=== PATIENT | female | born 1995 | race Two or more races ===

== ENCOUNTER 2016-10-25 10:58 | Emergency (ER) | payer OTHER ==
--- NOTE | 2016-10-25 13:47 | EDDOCDS ---
Nurse's Notes [facility] Name: Elaine Bowie Age: 21 yrs Sex: Female : 1995 Arrival Date: 10/25/2016 Time: 10:58 Bed TR7 Private MD: Other - Complete Info On Cds; KYLEE Newman Diagnosis: Acute tonsillitis-exudative Presentation: 10/25 11:04 Presenting complaint: Patient states: sore throat for 2 days. Patient reports did not hs1 go to sick call this morning. Risk factors: Stridor is not present. Drooling is not present. Shortness of breath is not present. Cellulitis is not present. Adult Sepsis Screening: The patient does not have new or worsening altered mentation. Patient's respiratory rate is less than 22. Systolic blood pressure is greater than 100. Patient has a qSOFA score of 0- Negative Sepsis Screen. Suicide/Homicide risk assessment- the patient denies having any suicidal and/or homicidal ideations and does not present with any other emotional, behavioral or mental health complaints. 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 Transition of care: patient was not received from another setting of care. 11:04 Acuity: HERMELINDA Level 4 hs1 11:04 Method Of Arrival: Walkin/Carried/Asstd hs1 Triage Assessment: 11:05 General: Appears in no apparent distress, Behavior is cooperative. Pain: Pain currently hs1 is 10 out of 10 on a pain scale. Pt Declines HIV testing. EENT: Reports sore throat. 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 none - PMHx: none; - PSHx: none; - Social history: Smoking status: Patient uses tobacco products, light tobacco smoker. No barriers to communication noted, The patient speaks fluent [place], Speaks appropriately for age. - Family history: Not pertinent. - : The pt / caregiver states he / she is not on anticoagulants. Home medication list is obtained from the patient. - Exposure Risk Screening:: None identified. Screenin:30 Screening information is obtained from the patient. Fall risk: No risks identified. ttb Assistance ADL's: requires no assistance with activities of daily living. Abuse/DV Screen: The patient / caregiver reports he/she is: not in a situation that causes fear, pain or injury. Nutritional screening: No deficits noted. Advance Directives: Currently, there is no health care proxy. home support is adequate. Assessment: 13:30 General: Appears in no apparent distress, well nourished, well groomed. Pain: Location: ttb throat. Neurological: Level of Consciousness is awake, alert. EENT: Throat has enlarged tonsils. Respiratory: Airway is patent Respiratory effort is even, unlabored, Respiratory pattern is regular, symmetrical, Denies shortness of breath. Derm: Skin is normal. 13:32 General: pt requests suspension for ibuprofen...PA aware.. ttb Vital Signs: 11:00 BP 111 / 75; Pulse 68; Resp 18; Temp 98.6; Pulse Ox 100% on R/A; Weight 54.43 kg (R); jrd Height 5 ft. 1 in. (154.94 cm); Pain 10/10; 13:30 BP 124 / 75; Pulse 85; Resp 18; Temp 98.3; Pulse Ox 98% on R/A; Pain 5/10; ttb 11:00 Body Mass Index 22.67 (54.43 kg, 154.94 cm) jrd Vitals: 11:00 Log In Time: October 25, 2016 at 10:45. jrd 12:43 Strep Screen is obtained and tested: Negative, a GATSNEG culture is ordered in [facility] mlb1 and sent. ED Course: 11:00 Patient visited by Jordan Palomares PCA. jrd 11:00 Other - Complete Info On Cds is Private Physician. jrd 11:00 KYLEE Newman is Private Physician. jrd 11:00 Patient moved to Waiting jrd 11:01 Patient visited by Jordan Palomares PCA. jrd 11:02 Patient moved to Pre RCE jrd 11:04 Triage Initiated hs1 12:33 Patient moved to Triage 1 mlb1 12:49 GATS (NEGATIVE STREP SCREEN) Sent. mlb1 12:53 Ulysses Sheriff PA-C is PHCP. ar2 12:53 Edward Elena MD is Attending Physician. ar2 12:53 Patient visited by Ulysses Sheriff PA-C. ar2 13:15 KYLEE Newman is Referral Physician. ar2 13:30 The patient / caregiver is instructed regarding the plan of care and ED course. Patient ttb has correct armband on for positive identification. 13:30 No IV's were initiated during this patient's visit. No procedures done that require ttb assistance. Strep culture sent to lab. 13:34 Patient moved to TR7 ttb Order Results: There are currently no results for this order. Outcome: 13:15 Discharge ordered by Provider. ar2 13:30 Discharge Assessment: Patient awake, alert and oriented x 3. No cognitive and/or ttb functional deficits noted. Patient verbalized understanding of disposition instructions. Patient awake and alert. patient administered narcotics - no. The following High Risk Discharge criteria are identified: None. Discharged to home ambulatory. Condition: good Condition: stable Condition: improved. Discharge instructions given to patient, Instructed on discharge instructions, follow up and referral plans. medication usage. No special radiology studies were completed. Property :Personal belongings accompany Pt. 13:45 Patient left the ED. ttb Signatures: Uday Olson RN RN mlb1 Ulysses Sheriff PA-C PATarik ar2 Shira Clifford, RN RN hs1 Ashlee Luke, BILL RN ttb Jordan Palomares, DEMOLITION HAMMER OPERATOR DEMOLITION HAMMER OPERATOR jrd MTDD
--- NOTE | 2016-10-25 13:47 | EDDOCDS ---
Physician Documentation [facility] Name: Elaine Bowie Age: 21 yrs Sex: Female : 1995 Arrival Date: 10/25/2016 Time: 10:58 Bed TR7 Private MD: Other - Complete Info On Cds; [facility] [place] Disposition: 10/25/16 13:15 Discharged to Home/Self Care. Impression: Acute tonsillitis - exudative. - Condition is Stable. - Discharge Instructions: Clear Liquid Diet, Tonsillitis, [id number]. - Prescriptions for Keflex 500 mg Oral Capsule - take 2 capsule by ORAL route every 12 hours for 10 days; 40 capsule. Ibuprofen 100 mg/5 mL Oral Suspension - take 30 milliliter by ORAL route every 6 hours As needed Take with food; Max = 40mg/kg/day.; 2 bottle. - Medication Reconciliation, Local Pharmacy Hours form. - Follow up: KAMI Newman; When: 2 - 3 days; Reason: Recheck today's complaints. Follow up: Emergency Department; When: As needed; Reason: Fever > 102F, Trouble breathing, Worsening of conditions. - Problem is new. - Symptoms are unchanged. - Notes: recommend rest at home for next 2-3 days. liquid diet for next 24 hrs, advance as tolerated. may use cepachol lozenges for additional pain relief Historical: - Allergies: no known allergies; - Home Meds: 1. none - PMHx: none; - PSHx: none; - Social history: Smoking status: Patient uses tobacco products, light tobacco smoker. No barriers to communication noted, The patient speaks fluent Martiniquais, Speaks appropriately for age. - Family history: Not pertinent. - : The pt / caregiver states he / she is not on anticoagulants. Home medication list is obtained from the patient. - Exposure Risk Screening:: None identified. 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 1 in. (154.94 cm); Pain 10/10; 13:30 BP 124 / 75; Pulse 85; Resp 18; Temp 98.3; Pulse Ox 98% on R/A; Pain 5/10; ttb 11:00 Body Mass Index 22.67 (54.43 kg, 154.94 cm) jrd MDM: 11:03 Strep Screen, Nursing ordered. dt4 12:44 GATS (NEGATIVE STREP SCREEN) Ordered. EDMS Signatures: Dispatcher [employer] EDMS Ulysses Sheriff PA-C PA-C ar2 Shira Clifford RN RN hs1 Ashlee Luke RN RN ttb Bridget Bailey PA-C PA-C dt4 MTDD
--- NOTE | 2016-10-27 14:46 | EDDOCDS ---
Physician Documentation [facility] Name: Elaine Bowie Age: 21 yrs Sex: Female : 1995 Arrival Date: 10/25/2016 Time: 10:58 Bed TR7 Private MD: Other - Complete Info On Cds; [place] [facility] [place] Disposition: 10/25/16 13:15 Discharged to Home/Self Care. Impression: Acute tonsillitis - exudative. - Condition is Stable. - Discharge Instructions: Clear Liquid Diet, Tonsillitis, [id number]. - Prescriptions for Keflex 500 mg Oral Capsule - take 2 capsule by ORAL route every 12 hours for 10 days; 40 capsule. Ibuprofen 100 mg/5 mL Oral Suspension - take 30 milliliter by ORAL route every 6 hours As needed Take with food; Max = 40mg/kg/day.; 2 bottle. - Medication Reconciliation, Local Pharmacy Hours form. - Follow up: KAMI Newman; When: 2 - 3 days; Reason: Recheck today's complaints. Follow up: Emergency Department; When: As needed; Reason: Fever > 102F, Trouble breathing, Worsening of conditions. - Problem is new. - Symptoms are unchanged. - Notes: recommend rest at home for next 2-3 days. liquid diet for next 24 hrs, advance as tolerated. may use cepachol lozenges for additional pain relief Historical: - Allergies: no known allergies; - Home Meds: 1. none - PMHx: none; - PSHx: none; - Social history: Smoking status: Patient uses tobacco products, light tobacco smoker. No barriers to communication noted, The patient speaks fluent [place] Citizen, Speaks appropriately for age. - Family history: Not pertinent. - : The pt / caregiver states he / she is not on anticoagulants. Home medication list is obtained from the patient. - Exposure Risk Screening:: None identified. 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 1 in. (154.94 cm); Pain 10/10; 13:30 BP 124 / 75; Pulse 85; Resp 18; Temp 98.3; Pulse Ox 98% on R/A; Pain 5/10; ttb 11:00 Body Mass Index 22.67 (54.43 kg, 154.94 cm) jrd MDM: 11:03 Strep Screen, Nursing ordered. dt4 12:44 GATS (NEGATIVE STREP SCREEN) Ordered. EDMS 14:47 [facility] Payment Agreement was scanned into [employer] and attached to record. lg 10/26 11:51 T-Sheet-- Draft Copy was scanned into [employer] and attached to record. gb Signatures: Dispatcher [employer] EDMS Norah Samuels, Reg Reg gb Negar Rojas, Reg Reg lg Ulysses Sheriff PA-C PA-C ar2 Shira Clifford RN RN hs1 Ashlee Luke RN RN ttb Bridget Bailey PA-C PA-C dt4 The chart was reviewed and I authenticate all verbal orders and agree with the evaluation and treatment provided.Attachments: 10/25 14:47 [facility] Payment Agreement 10/26 11:51 T-Sheet-- Draft Copy gb Chart Complete MTDD
--- NOTE | 2016-10-27 14:46 | EDDOCDS ---
Physician Documentation [facility] Name: Elaine Bowie Age: 21 yrs Sex: Female : 1995 Arrival Date: 10/25/2016 Time: 10:58 Bed TR7 Private MD: Other - Complete Info On Cds; [facility] [place] Disposition: 10/25/16 13:15 Discharged to Home/Self Care. Impression: Acute tonsillitis - exudative. - Condition is Stable. - Discharge Instructions: Clear Liquid Diet, Tonsillitis, [id number]. - Prescriptions for Keflex 500 mg Oral Capsule - take 2 capsule by ORAL route every 12 hours for 10 days; 40 capsule. Ibuprofen 100 mg/5 mL Oral Suspension - take 30 milliliter by ORAL route every 6 hours As needed Take with food; Max = 40mg/kg/day.; 2 bottle. - Medication Reconciliation, Local Pharmacy Hours form. - Follow up: KAMI Newman; When: 2 - 3 days; Reason: Recheck today's complaints. Follow up: Emergency Department; When: As needed; Reason: Fever > 102F, Trouble breathing, Worsening of conditions. - Problem is new. - Symptoms are unchanged. - Notes: recommend rest at home for next 2-3 days. liquid diet for next 24 hrs, advance as tolerated. may use cepachol lozenges for additional pain relief Historical: - Allergies: no known allergies; - Home Meds: 1. none - PMHx: none; - PSHx: none; - Social history: Smoking status: Patient uses tobacco products, light tobacco smoker. No barriers to communication noted, The patient speaks fluent Thai, Speaks appropriately for age. - Family history: Not pertinent. - : The pt / caregiver states he / she is not on anticoagulants. Home medication list is obtained from the patient. - Exposure Risk Screening:: None identified. 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 1 in. (154.94 cm); Pain 10/10; 13:30 BP 124 / 75; Pulse 85; Resp 18; Temp 98.3; Pulse Ox 98% on R/A; Pain 5/10; ttb 11:00 Body Mass Index 22.67 (54.43 kg, 154.94 cm) jrd MDM: 11:03 Strep Screen, Nursing ordered. dt4 12:44 GATS (NEGATIVE STREP SCREEN) Ordered. EDMS 14:47 [facility] Payment Agreement was scanned into [employer] and attached to record. lg 10/26 11:51 T-Sheet-- Draft Copy was scanned into [employer] and attached to record. gb Signatures: Dispatcher [employer] EDMS Norah Samuels, Reg Reg gb Negar Rojas, Reg Reg lg Ulysses Sheriff PA-C PA-C ar2 Shira Clifford RN RN hs1 Ashlee Luke RN RN ttb Bridget Bailey PA-C PA-C dt4 The chart was reviewed and I authenticate all verbal orders and agree with the evaluation and treatment provided.Attachments: 10/25 14:47 [facility] Payment Agreement 10/26 11:51 T-Sheet-- Draft Copy gb Chart Complete MTDD
--- NOTE | 2016-10-27 14:46 | EDDOCDS ---
Nurse's Notes [facility] Name: Elaine Bowie Age: 21 yrs Sex: Female : 1995 Arrival Date: 10/25/2016 Time: 10:58 Bed TR7 Private MD: Other - Complete Info On Cds; KYLEE Newman Diagnosis: Acute tonsillitis-exudative Presentation: 10/25 11:04 Presenting complaint: Patient states: sore throat for 2 days. Patient reports did not hs1 go to sick call this morning. Risk factors: Stridor is not present. Drooling is not present. Shortness of breath is not present. Cellulitis is not present. Adult Sepsis Screening: The patient does not have new or worsening altered mentation. Patient's respiratory rate is less than 22. Systolic blood pressure is greater than 100. Patient has a qSOFA score of 0- Negative Sepsis Screen. Suicide/Homicide risk assessment- the patient denies having any suicidal and/or homicidal ideations and does not present with any other emotional, behavioral or mental health complaints. 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 Transition of care: patient was not received from another setting of care. 11:04 Acuity: HERMELINDA Level 4 hs1 11:04 Method Of Arrival: Walkin/Carried/Asstd hs1 Triage Assessment: 11:05 General: Appears in no apparent distress, Behavior is cooperative. Pain: Pain currently hs1 is 10 out of 10 on a pain scale. Pt Declines HIV testing. EENT: Reports sore throat. 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 none - PMHx: none; - PSHx: none; - Social history: Smoking status: Patient uses tobacco products, light tobacco smoker. No barriers to communication noted, The patient speaks fluent Wallisian, Speaks appropriately for age. - Family history: Not pertinent. - : The pt / caregiver states he / she is not on anticoagulants. Home medication list is obtained from the patient. - Exposure Risk Screening:: None identified. Screenin:30 Screening information is obtained from the patient. Fall risk: No risks identified. ttb Assistance ADL's: requires no assistance with activities of daily living. Abuse/DV Screen: The patient / caregiver reports he/she is: not in a situation that causes fear, pain or injury. Nutritional screening: No deficits noted. Advance Directives: Currently, there is no health care proxy. home support is adequate. Assessment: 13:30 General: Appears in no apparent distress, well nourished, well groomed. Pain: Location: ttb throat. Neurological: Level of Consciousness is awake, alert. EENT: Throat has enlarged tonsils. Respiratory: Airway is patent Respiratory effort is even, unlabored, Respiratory pattern is regular, symmetrical, Denies shortness of breath. Derm: Skin is normal. 13:32 General: pt requests suspension for ibuprofen...PA aware.. ttb Vital Signs: 11:00 BP 111 / 75; Pulse 68; Resp 18; Temp 98.6; Pulse Ox 100% on R/A; Weight 54.43 kg (R); jrd Height 5 ft. 1 in. (154.94 cm); Pain 10/10; 13:30 BP 124 / 75; Pulse 85; Resp 18; Temp 98.3; Pulse Ox 98% on R/A; Pain 5/10; ttb 11:00 Body Mass Index 22.67 (54.43 kg, 154.94 cm) jrd Vitals: 11:00 Log In Time: October 25, 2016 at 10:45. jrd 12:43 Strep Screen is obtained and tested: Negative, a GATSNEG culture is ordered in [facility] mlb1 and sent. ED Course: 11:00 Patient visited by Jordan Palomares PCA. jrd 11:00 Other - Complete Info On Cds is Private Physician. jrd 11:00 KYLEE Newman is Private Physician. jrd 11:00 Patient moved to Waiting jrd 11:01 Patient visited by Jordan Palomares PCA. jrd 11:02 Patient moved to Pre RCE jrd 11:04 Triage Initiated hs1 12:33 Patient moved to Triage 1 mlb1 12:49 GATS (NEGATIVE STREP SCREEN) Sent. mlb1 12:53 Ulysses Sheriff PA-C is PHCP. ar2 12:53 Edward Elena MD is Attending Physician. ar2 12:53 Patient visited by Ulysses Sheriff PA-C. ar2 13:15 KYLEE Newman is Referral Physician. ar2 13:30 The patient / caregiver is instructed regarding the plan of care and ED course. Patient ttb has correct armband on for positive identification. 13:30 No IV's were initiated during this patient's visit. No procedures done that require ttb assistance. Strep culture sent to lab. 13:34 Patient moved to TR7 ttb 14:45 Patient name changed from Elaine\S\\S\Clinton\S\ to Elaine\S\Suzy\S\Clinton. EDMS 14:47 [facility] [place] Payment Agreement was scanned into [employer] and attached to record. 02 11:51 T-Sheet-- Draft Copy was scanned into [employer] and attached to record. gb Order Results: Lab Order: GATS (NEGATIVE STREP SCREEN); SPEC'M 10/25/16 12:46 Test: GATS CULTURE (NEG STREP SCR); Value: GATS RESULT NEGATIVE FOR STREP PYOGENES (GROUP A); Status: F Test: GATS CULTURE (NEG STREP SCR); Value: <EXTERNAL COMMENT eCWMed> FULL REPORT IN LAB NOTES (eCW and Medent).; Status: F Outcome: 10/25 13:15 Discharge ordered by Provider. ar2 13:30 Discharge Assessment: Patient awake, alert and oriented x 3. No cognitive and/or ttb functional deficits noted. Patient verbalized understanding of disposition instructions. Patient awake and alert. patient administered narcotics - no. The following High Risk Discharge criteria are identified: None. Discharged to home ambulatory. Condition: good Condition: stable Condition: improved. Discharge instructions given to patient, Instructed on discharge instructions, follow up and referral plans. medication usage. No special radiology studies were completed. Property :Personal belongings accompany Pt. 13:45 Patient left the ED. ttb Signatures: Dispatcher [employer] EDRI Norah Samuels, Reg Reg gb Negar Rojas, Reg Reg lg Uday Olson RN RN mlb1 Ulysses Sheriff PA-C PA-C ar2 Shira Clifford, RN RN hs1 Ashlee Luke RN RN ttb Joradn Palomares, EMILIA EDGE BONDER jrd Chart Complete MTDD
== END 2016-10-25 13:45 | disposition home or self-care (01) ==
LOC: M ED 10:58
DX: J03.90 Acute tonsillitis, unspecified (principal); F17.210 Nicotine dependence, cigarettes, uncomplicated

== ENCOUNTER 2016-10-27 12:48 | Emergency (ER) | payer OTHER ==
[2016-10-27] MEDS ORDERED: LIDOCAINE 1% MDV 20ML VIAL As Ordered ONE (13:35)
[2016-10-27] MEDS ORDERED: cefTRIAXone SOD 1 GM VIAL (J0696) As Ordered ONE (13:36)
[2016-10-27] MEDS ORDERED: IBUPROFEN 600 MG TAB As Ordered ONE (14:50)
--- NOTE | 2016-10-27 15:05 | EDDOCDS ---
Physician Documentation [facility] Name: Elaine Bowie Age: 21 yrs Sex: Female : 1995 Arrival Date: 10/27/2016 Time: 12:48 Bed 13 Private MD: KYLEE Newman Disposition: 10/27/16 14:19 Discharged to Home/Self Care. Impression: Acute pharyngitis. - Condition is Stable. - Discharge Instructions: Pharyngitis, Salt Water Gargle. - Prescriptions for Ibuprofen 600 mg Oral Tablet - take 1 tablet by ORAL route every 6 hours As needed take with food; 30 tablet. - Medication Reconciliation, Local Pharmacy Hours form. - Follow up: KYLEE Newman; When: 2 - 3 days; Reason: Recheck today's complaints, Continuance of care. - Problem is an ongoing problem. - Symptoms are unchanged. Historical: - Allergies: no known allergies; - Home Meds: 1. Keflex 500 mg Oral cap 2 cap every 12 hours (Last dose: 10/27/2016) 2. ibuprofen 100 mg/5 mL Oral susp 30 mL (Last dose: 10/27/2016 05:00) - PMHx: none; - PSHx: none; - Social history: Smoking status: Patient uses tobacco products, light tobacco smoker. No barriers to communication noted, The patient speaks fluent Yakut. - Family history: Not pertinent. - : The pt / caregiver states he / she is not on anticoagulants. Home medication list is obtained from the patient. - Exposure Risk Screening:: None identified. 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 (154.94 cm); Pain 10/10; 14:59 BP 116 / 61; Pulse 88; Resp 16; Temp 100.7; Pulse Ox 96% ; Pain 10/10; cjh 12:59 Body Mass Index 22.67 (54.43 kg, 154.94 cm) mb9 MDM: 13:10 Strep Screen, Nursing ordered. lam 13:11 Financial registration complete. mm15 13:11 cefTRIAXone 1 grams IM once ordered. lam 13:11 [facility] Payment Agreement was scanned into [employer] and attached to record. mm15 13:49 GATS (NEGATIVE STREP SCREEN) Ordered. EDMS 14:49 Ibuprofen 600 mg PO once ordered. ke Administered Medications: 13:11 CANCELLED (Other Intervention Used): Penicillin VK 500 mg PO once ke 13:11 CANCELLED (Other Intervention Used): predniSONE 20 mg PO once; administer with food or ke milk 13:48 Drug: cefTRIAXone 1 grams Route: IM; Site: right gluteus; [facility] 15:04 Follow up: Response: No Adverse Reaction [facility] 14:52 Drug: Ibuprofen 600 mg [ibuprofen 600 mg tablet (1 tabs)] Route: PO; [facility] Signatures: Dispatcher [employer] EDMS Greyson Chatterjee FNP LOADING MACHINE TOOL SETTER Claudia YoRN RN [facility] Alan Minor mm15 Uday MarRN RN mb9 The chart was reviewed and I authenticate all verbal orders and agree with the evaluation and treatment provided.Corrections: (The following items were deleted from the chart) 13:11 13:10 Penicillin VK 500 mg PO once ordered. ke ke 13:11 13:10 predniSONE 20 mg PO once; administer with food or milk ordered. ke ke Attachments: 13:11 [facility] Payment Agreement mm15 MTDD
--- NOTE | 2016-10-27 15:05 | EDDOCDS ---
Nurse's Notes [facility] Name: Elaine Bowie Age: 21 yrs Sex: Female : 1995 Arrival Date: 10/27/2016 Time: 12:48 Bed 13 Private MD: Trent Eleanor Diagnosis: Acute pharyngitis Presentation: 10/27 12:55 Presenting complaint: Patient states: "I was here the other day for a sore throat and mb9 you guys gave me antibiotics. I went to the [facility] today because I had some black spots on my throat and it felt like my throat was closing.". Risk factors: Stridor is not present. Drooling is not present. Shortness of breath is not present. Cellulitis is present. The charge nurse has been notified. The patient has been moved to a treatment area. Adult Sepsis Screening: The patient does not have new or worsening altered mentation. Patient's respiratory rate is less than 22. Systolic blood pressure is greater than 100. Patient has a qSOFA score of 0- Negative Sepsis Screen. Suicide/Homicide risk assessment- the patient denies having any suicidal and/or homicidal ideations and does not present with any other emotional, behavioral or mental health complaints. 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 Transition of care: patient was received from a primary care office; [place]. Care prior to arrival: See EMS report. Medications administered prior to arrival: ems reports pt received 8 mg of dexamethasone IM at [facility] 12:55 Acuity: HERMELINDA Level 3 mb9 12:55 Method Of Arrival: Ambulance mb9 Triage Assessment: 13:04 General: Appears uncomfortable, Behavior is cooperative. Pain: Location: uvula, left mb9 aspect of posterior pharynx and right aspect of posterior pharynx Pain currently is 10 out of 10 on a pain scale. HIV screening NA for this visit Offered previously. The patient is triaged at the bedside. See Assessment in Nurses Notes section of ED record. EENT: Throat is reddened has enlarged tonsils on right on left. Respiratory: Airway is patent Respiratory effort is even, unlabored, Breath sounds are clear bilaterally. 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 Keflex 500 mg Oral cap 2 cap every 12 hours (Last dose: 10/27/2016) 2. ibuprofen 100 mg/5 mL Oral susp 30 mL (Last dose: 10/27/2016 05:00) - PMHx: none; - PSHx: none; - Social history: Smoking status: Patient uses tobacco products, light tobacco smoker. No barriers to communication noted, The patient speaks fluent Mongolian. - Family history: Not pertinent. - : The pt / caregiver states he / she is not on anticoagulants. Home medication list is obtained from the patient. - Exposure Risk Screening:: None identified. Screenin:59 Screening information is obtained from the patient. Fall risk: No risks identified. [facility] Assistance ADL's: requires no assistance with activities of daily living. Abuse/DV Screen: The patient / caregiver reports he/she is: not in a situation that causes fear, pain or injury. Nutritional screening: No deficits noted. Advance Directives: There is no active DNR order. home support is adequate. Assessment: 14:59 General: Appears in no apparent distress, comfortable, Behavior is appropriate for age, [facility] cooperative. Pain: Location: throat Pain currently is 10 out of 10 on a pain scale. Vital Signs: 12:59 BP 112 / 71; Pulse 97; Resp 17; Temp 99(TE); Pulse Ox 98% on R/A; Weight 54.43 kg; mb9 Height 61 in. (154.94 cm); Pain 10/10; 14:59 BP 116 / 61; Pulse 88; Resp 16; Temp 100.7; Pulse Ox 96% ; Pain 10/10; [facility] 12:59 Body Mass Index 22.67 (54.43 kg, 154.94 cm) 9 Vitals: 12:59 Log In Time N/A - ambulance arrival. mb9 ED Course: 12:49 Patient visited by Carmen Marquez, Therapist Physical. lbd 12:49 Trent [facility] is Private Physician. lbd 12:49 Patient moved to Waiting lbd 12:49 Patient moved to 13 lbd 12:59 Triage Initiated mb9 13:02 [facility] ke 13:02 Patient visited by Greyson Chatterjee FNP. ke 13:02 Patient visited by Greyson Chatterjee FNP. ke 13:11 [facility] Payment Agreement was scanned into [employer] and attached to record. mm15 13:31 Patient visited by Greyson Chatterjee FNP. ke 14:00 Patient visited by Greyson Chatterjee FNP. ke 14:19 Trent [facility] is Referral Physician. ke 14:59 The patient / caregiver is instructed regarding the plan of care and ED course. [facility] 14:59 No IV's were initiated during this patient's visit. No procedures done that require [facility] assistance. Administered Medications: 13:11 CANCELLED (Other Intervention Used): Penicillin VK 500 mg PO once ke 13:11 CANCELLED (Other Intervention Used): predniSONE 20 mg PO once; administer with food or ke milk 13:48 Drug: cefTRIAXone 1 grams Route: IM; Site: right gluteus; [facility] 15:04 Follow up: Response: No Adverse Reaction [facility] 14:52 Drug: Ibuprofen 600 mg [ibuprofen 600 mg tablet (1 tabs)] Route: PO; [facility] Order Results: There are currently no results for this order. Outcome: 14:19 Discharge ordered by Provider. ke 14:59 Discharge Assessment: Patient awake, alert and oriented x 3. No cognitive and/or [facility] functional deficits noted. Patient verbalized understanding of disposition instructions. patient administered narcotics - no. The following High Risk Discharge criteria are identified: None. Discharged to home ambulatory. Condition: good Condition: stable Condition: improved. Discharge instructions given to patient, Instructed on discharge instructions, follow up and referral plans. medication usage, Demonstrated understanding of instructions, medications, Pt was receptive of discharge instructions/ teaching. Prescriptions given X 1. No special radiology studies were completed. Property :Personal belongings accompany Pt. 15:05 Patient left the ED. [facility] Signatures: Carmen Marquez, Therapist Physical Unit lbd Greyson Chatterjee FNP FNP ke Hafner, JaneRN RN [facility] Alan Minor mm15 Uday Mar,RN RN mb9 Corrections: (The following items were deleted from the chart) 15:02 14:59 BP 166 / 61; Pulse 88bpm; Resp 16bpm; Pulse Ox 96%; Temp 100.7F; Pain 10/10; [facility] MTDD
--- NOTE | 2016-10-29 16:06 | EDDOCDS ---
Physician Documentation [facility] Name: Elaine Bowie Age: 21 yrs Sex: Female : 1995 Arrival Date: 10/27/2016 Time: 12:48 Bed 13 Private MD: KYLEE Newman Disposition: 10/27/16 14:19 Discharged to Home/Self Care. Impression: Acute pharyngitis. - Condition is Stable. - Discharge Instructions: Pharyngitis, Salt Water Gargle. - Prescriptions for Ibuprofen 600 mg Oral Tablet - take 1 tablet by ORAL route every 6 hours As needed take with food; 30 tablet. - Medication Reconciliation, Local Pharmacy Hours form. - Follow up: KYLEE Newman; When: 2 - 3 days; Reason: Recheck today's complaints, Continuance of care. - Problem is an ongoing problem. - Symptoms are unchanged. Historical: - Allergies: no known allergies; - Home Meds: 1. Keflex 500 mg Oral cap 2 cap every 12 hours (Last dose: 10/27/2016) 2. ibuprofen 100 mg/5 mL Oral susp 30 mL (Last dose: 10/27/2016 05:00) - PMHx: none; - PSHx: none; - Social history: Smoking status: Patient uses tobacco products, light tobacco smoker. No barriers to communication noted, The patient speaks fluent Kazakh. - Family history: Not pertinent. - : The pt / caregiver states he / she is not on anticoagulants. Home medication list is obtained from the patient. - Exposure Risk Screening:: None identified. PRESS SET UP: 10/27 12:59 LMP 10/02/2016 mb9 Vital Signs: 12:59 BP 112 / 71; Pulse 97; Resp 17; Temp 99(TE); Pulse Ox 98% on R/A; Weight 54.43 kg / 120 mb9 lbs; Height 61 in. (154.94 cm); Pain 10/10; 14:59 BP 116 / 61; Pulse 88; Resp 16; Temp 100.7; Pulse Ox 96% ; Pain 10/10; cjh 12:59 Body Mass Index 22.67 (54.43 kg, 154.94 cm) mb9 MDM: 13:10 Strep Screen, Nursing ordered. lam 13:11 Financial registration complete. mm15 13:11 cefTRIAXone 1 grams IM once ordered. lam 13:11 [facility] Payment Agreement was scanned into [employer] and attached to record. mm15 13:49 GATS (NEGATIVE STREP SCREEN) Ordered. EDMS 14:49 Ibuprofen 600 mg PO once ordered. ke 10/28 10:50 T-Sheet-- Draft Copy was scanned into [employer] and attached to record. gb 17:32 PCR was scanned into [employer] and attached to record. gb Administered Medications: 10/27 13:11 CANCELLED (Other Intervention Used): Penicillin VK 500 mg PO once ke 13:11 CANCELLED (Other Intervention Used): predniSONE 20 mg PO once; administer with food or ke milk 13:48 Drug: cefTRIAXone 1 grams Route: IM; Site: right gluteus; [facility] 15:04 Follow up: Response: No Adverse Reaction [facility] 14:52 Drug: Ibuprofen 600 mg [ibuprofen 600 mg tablet (1 tabs)] Route: PO; [facility] 15:11 Follow up: Response: Pt left department before re-evaluation is appropriate [facility] Signatures: Dispatcher [employer] EDMS Norah Samuels, Reg Reg Greyson Chatterjee, FOUNTAIN BRUSH ASSEMBLER FOUNTAIN BRUSH ASSEMBLER Claudia Moy RN RN [facility] Alan Minor mm15 Uday Mar,RN RN mb9 The chart was reviewed and I authenticate all verbal orders and agree with the evaluation and treatment provided.Corrections: (The following items were deleted from the chart) 13: 13:10 Penicillin VK 500 mg PO once ordered. [facility] 13:11 13:10 predniSONE 20 mg PO once; administer with food or milk ordered. ke Attachments: 13:11 [facility] Payment Agreement mm15 10/28 10:50 T-Sheet-- Draft Copy gb Chart Complete MTDD
--- NOTE | 2016-10-29 16:06 | EDDOCDS ---
Nurse's Notes [facility] Name: Elaine Bowie Age: 21 yrs Sex: Female : 1995 Arrival Date: 10/27/2016 Time: 12:48 Bed 13 Private MD: Trent Eleanor Diagnosis: Acute pharyngitis Presentation: 10/27 12:55 Presenting complaint: Patient states: "I was here the other day for a sore throat and mb9 you guys gave me antibiotics. [place] [facility] [place] because I had some black spots on my throat and it felt like my throat was closing.". Risk factors: Stridor is not present. Drooling is not present. Shortness of breath is not present. Cellulitis is present. The charge nurse has been notified. The patient has been moved to a treatment area. Adult Sepsis Screening: The patient does not have new or worsening altered mentation. Patient's respiratory rate is less than 22. Systolic blood pressure is greater than 100. Patient has a qSOFA score of 0- Negative Sepsis Screen. Suicide/Homicide risk assessment- the patient denies having any suicidal and/or homicidal ideations and does not present with any other emotional, behavioral or mental health complaints. 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 Transition of care: patient was received from a primary care office; [place]. Care prior to arrival: See EMS report. Medications administered prior to arrival: ems reports pt received 8 mg of dexamethasone IM at [facility] 12:55 Acuity: HERMELINDA Level 3 mb9 12:55 Method Of Arrival: Ambulance mb9 Triage Assessment: 13:04 General: Appears uncomfortable, Behavior is cooperative. Pain: Location: uvula, left mb9 aspect of posterior pharynx and right aspect of posterior pharynx Pain currently is 10 out of 10 on a pain scale. HIV screening NA for this visit Offered previously. The patient is triaged at the bedside. See Assessment in Nurses Notes section of ED record. EENT: Throat is reddened has enlarged tonsils on right on left. Respiratory: Airway is patent Respiratory effort is even, unlabored, Breath sounds are clear bilaterally. 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 Keflex 500 mg Oral cap 2 cap every 12 hours (Last dose: 10/27/2016) 2. ibuprofen 100 mg/5 mL Oral susp 30 mL (Last dose: 10/27/2016 05:00) - PMHx: none; - PSHx: none; - Social history: Smoking status: Patient uses tobacco products, light tobacco smoker. No barriers to communication noted, The patient speaks fluent Georgian. - Family history: Not pertinent. - : The pt / caregiver states he / she is not on anticoagulants. Home medication list is obtained from the patient. - Exposure Risk Screening:: None identified. Screenin:59 Screening information is obtained from the patient. Fall risk: No risks identified. [facility] Assistance ADL's: requires no assistance with activities of daily living. Abuse/DV Screen: The patient / caregiver reports he/she is: not in a situation that causes fear, pain or injury. Nutritional screening: No deficits noted. Advance Directives: There is no active DNR order. home support is adequate. Assessment: 14:59 General: Appears in no apparent distress, comfortable, Behavior is appropriate for age, [facility] cooperative. Pain: Location: throat Pain currently is 10 out of 10 on a pain scale. Vital Signs: 12:59 BP 112 / 71; Pulse 97; Resp 17; Temp 99(TE); Pulse Ox 98% on R/A; Weight 54.43 kg; mb9 Height 61 in. (154.94 cm); Pain 10/10; 14:59 BP 116 / 61; Pulse 88; Resp 16; Temp 100.7; Pulse Ox 96% ; Pain 10/10; [facility] 12:59 Body Mass Index 22.67 (54.43 kg, 154.94 cm) 9 Vitals: 12:59 Log In Time N/A - ambulance arrival. mb9 ED Course: 12:49 Patient visited by Carmen Marquez, Salesperson [employer]. lbd 12:49 Trent [facility] [place] Private Physician. lbd 12:49 Patient moved to Waiting lbd 12:49 Patient moved to 13 lbd 12:59 Triage Initiated mb9 13:02 [facility] ke 13:02 Patient visited by Greyson Chatterjee FNP. ke 13:02 Patient visited by Greyson Chatterjee FNP. ke 13:11 [facility] Payment Agreement was scanned into [email or web address] and attached to record. mm15 13:31 Patient visited by Greyson Chatterjee FNP. ke 14:00 Patient visited by Greyson Chatterjee FNP. ke 14:19 KYLEE Newman is Referral Physician. ke 14:59 The patient / caregiver is instructed regarding the plan of care and ED course. [facility] 14:59 No IV's were initiated during this patient's visit. No procedures done that require [facility] assistance. 10/28 10:50 T-Sheet-- Draft Copy was scanned into [email or web address] and attached to record. gb 17:32 PCR was scanned into [email or web address] and attached to record. gb Administered Medications: 10/27 13:11 CANCELLED (Other Intervention Used): Penicillin VK 500 mg PO once ke 13:11 CANCELLED (Other Intervention Used): predniSONE 20 mg PO once; administer with food or ke milk 13:48 Drug: cefTRIAXone 1 grams Route: IM; Site: right gluteus; [facility] 15:04 Follow up: Response: No Adverse Reaction [facility] 14:52 Drug: Ibuprofen 600 mg [ibuprofen 600 mg tablet (1 tabs)] Route: PO; [facility] 15:11 Follow up: Response: Pt left department before re-evaluation is appropriate [facility] Order Results: Lab Order: GATS (NEGATIVE STREP SCREEN); SPEC'M 10/27/16 14:10 Test: GATS CULTURE (NEG STREP SCR); Value: GATS RESULT NEGATIVE FOR STREP PYOGENES (GROUP A); Status: F Test: GATS CULTURE (NEG STREP SCR); Value: <EXTERNAL COMMENT eCWMed> FULL REPORT IN LAB NOTES (eCW and Medent).; Status: F Outcome: 14:19 Discharge ordered by Provider. ke 14:59 Discharge Assessment: Patient awake, alert and oriented x 3. No cognitive and/or [facility] functional deficits noted. Patient verbalized understanding of disposition instructions. patient administered narcotics - no. The following High Risk Discharge criteria are identified: None. Discharged to home ambulatory. Condition: good Condition: stable Condition: improved. Discharge instructions given to patient, Instructed on discharge instructions, follow up and referral plans. medication usage, Demonstrated understanding of instructions, medications, Pt was receptive of discharge instructions/ teaching. Prescriptions given X 1. No special radiology studies were completed. Property :Personal belongings accompany Pt. 15:05 Patient left the ED. [facility] Signatures: Carmen Marquez, Salesperson [employer] Unit lbd Norah Samuels, Reg Reg gb Greyson Chatterjee, CAREER BASED INTERVENTION COORDINATOR CAREER BASED INTERVENTION COORDINATOR Claudia Yo RN RN [facility] Alan Minor mm15 Uday Mar RN RN mb9 Corrections: (The following items were deleted from the chart) 15:02 14:59 BP 166 / 61; Pulse 88bpm; Resp 16bpm; Pulse Ox 96%; Temp 100.7F; Pain 10/10; [facility] Chart Complete MTDD
--- NOTE | 2016-10-29 16:06 | EDDOCDS ---
Physician Documentation [facility] Name: Elaine Bowie Age: 21 yrs Sex: Female : 1995 Arrival Date: 10/27/2016 Time: 12:48 Bed 13 Private MD: KYLEE Newman Disposition: 10/27/16 14:19 Discharged to Home/Self Care. Impression: Acute pharyngitis. - Condition is Stable. - Discharge Instructions: Pharyngitis, Salt Water Gargle. - Prescriptions for Ibuprofen 600 mg Oral Tablet - take 1 tablet by ORAL route every 6 hours As needed take with food; 30 tablet. - Medication Reconciliation, Local Pharmacy Hours form. - Follow up: KYLEE Newman; When: 2 - 3 days; Reason: Recheck today's complaints, Continuance of care. - Problem is an ongoing problem. - Symptoms are unchanged. Historical: - Allergies: no known allergies; - Home Meds: 1. Keflex 500 mg Oral cap 2 cap every 12 hours (Last dose: 10/27/2016) 2. ibuprofen 100 mg/5 mL Oral susp 30 mL (Last dose: 10/27/2016 05:00) - PMHx: none; - PSHx: none; - Social history: Smoking status: Patient uses tobacco products, light tobacco smoker. No barriers to communication noted, The patient speaks fluent Wolof. - Family history: Not pertinent. - : The pt / caregiver states he / she is not on anticoagulants. Home medication list is obtained from the patient. - Exposure Risk Screening:: None identified. 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 (154.94 cm); Pain 10/10; 14:59 BP 116 / 61; Pulse 88; Resp 16; Temp 100.7; Pulse Ox 96% ; Pain 10/10; cjh 12:59 Body Mass Index 22.67 (54.43 kg, 154.94 cm) mb9 MDM: 13:10 Strep Screen, Nursing ordered. lam 13:11 Financial registration complete. mm15 13:11 cefTRIAXone 1 grams IM once ordered. lam 13:11 [facility] Payment Agreement was scanned into [employer] and attached to record. mm15 13:49 GATS (NEGATIVE STREP SCREEN) Ordered. EDMS 14:49 Ibuprofen 600 mg PO once ordered. ke 10/28 10:50 T-Sheet-- Draft Copy was scanned into [employer] and attached to record. gb 17:32 PCR was scanned into [employer] and attached to record. gb Administered Medications: 10/27 13:11 CANCELLED (Other Intervention Used): Penicillin VK 500 mg PO once ke 13:11 CANCELLED (Other Intervention Used): predniSONE 20 mg PO once; administer with food or ke milk 13:48 Drug: cefTRIAXone 1 grams Route: IM; Site: right gluteus; [facility] 15:04 Follow up: Response: No Adverse Reaction [facility] 14:52 Drug: Ibuprofen 600 mg [ibuprofen 600 mg tablet (1 tabs)] Route: PO; [facility] 15:11 Follow up: Response: Pt left department before re-evaluation is appropriate [facility] Signatures: Dispatcher [employer] EDMS Norah Samuels, Reg Reg Greyson Chatterjee, MANAGER BEHAVIOR MANAGER BEHAVIOR Claudia Moy RN RN [facility] Alan Minor mm15 Uday Mar,RN RN mb9 The chart was reviewed and I authenticate all verbal orders and agree with the evaluation and treatment provided.Corrections: (The following items were deleted from the chart) 13: 13:10 Penicillin VK 500 mg PO once ordered. [facility] 13:11 13:10 predniSONE 20 mg PO once; administer with food or milk ordered. ke Attachments: 13:11 [facility] Payment Agreement mm15 10/28 10:50 T-Sheet-- Draft Copy gb Chart Complete MTDD
== END 2016-10-27 15:05 | disposition home or self-care (01) ==
LOC: M ED 12:48
DX: J02.9 Acute pharyngitis, unspecified (principal); Z72.0 Tobacco use
CPT/HCPCS: 87880; 96372; 99283; J0696